=== PATIENT | male | born 1965 | race African-American/Black ===

== ENCOUNTER 2017-03-06 11:05 | Emergency (ER) | payer SELFPAY ==
[2017-03-06] MEDS ORDERED: Ketorolac Tromethamine 60 MG/2 ML VIAL ONE (11:34)
[2017-03-06] MEDS ORDERED: Dexamethasone 20 MG/5 ML VIAL ONE (11:34)
--- NOTE | 2017-03-06 12:26 | RAD ---
LEFT SHOULDER: Indication: Pain, no known injury. FINDINGS: No fracture, dislocation, or significant arthropathy. IMPRESSION: No acute osseous abnormality of the left shoulder. POS: HUSEYIN
== END 2017-03-06 12:05 | disposition home or self-care (01) ==
LOC: NAV ERS 11:05
DX: S43.402A Unspecified sprain of left shoulder joint, initial encounter (principal); F17.290 Nicotine dependence, other tobacco product, uncomplicated; X50.1XXA Overexertion from prolonged static or awkward postures, initial encounter
CPT/HCPCS: 96372; J1100; J1885